=== PATIENT | female | born 1980 | race Caucasian/White ===

== ENCOUNTER 2016-05-06 16:45 | Emergency (ER) | payer OTHER ==
[~2016-05-06 16:45] MED LIST: EFFEXOR25 MG PO; GABAPENTIN600 MG PO; HYDROXYZINE HCL25 MG PO; LISINOPRIL10 MG PO; NICOTINE T21 MG/24 H TOP; NORCO1 TA1 PO
--- NOTE | 2016-05-06 18:29 | ED CLINICAL REPORT ---
Clinical Report - Physicians/Mid Levels [facility] [address] [place] [address] 05/06/2016 16:45 Patient: SINCERE BERRY Time Seen: 17:06 May 06 2016. Arrived- By private vehicle. Historian- patient. HISTORY OF PRESENT ILLNESS Chief Complaint: COUGH. This started just prior to arrival and is still present. The patient has had sputum production, a cough, difficulty breathing and chills. Additional history - No known contact with a sick individual. (Patient reports worsening of her breathing over the last 2-3 days, out of her inhaler for the last 2-3 days. No recent travel. [place] contacts at home. Denies hemoptysis.). REVIEW OF SYSTEMS No headache, vomiting, diarrhea or skin rash. All systems otherwise negative, except as recorded above. ADDITIONAL NOTES The nursing notes have been reviewed. PHYSICAL EXAM Vital Signs: 05/06/2016 16:52 BP: 137/91. HR: 86. RR: 24. O2 saturation: 97%. Temp: 98.4 F. Pain level now: 8/10. Appearance: Alert. No acute distress. ENT: Ears normal. Nose normal. Pharynx normal. Uvula midline. No trouble handling secretions. Neck: Normal inspection. No meningeal signs. CVS: Normal heart rate and rhythm. Heart sounds normal. Respiratory: Respiratory distress. Wheezing present. No retractions or decreased breath sounds. Abdomen: Soft. Back: No CVA tenderness. Skin: Skin warm. Neuro: Oriented X 3. No motor deficit. LABS, X-RAYS, AND EKG EKG: EKG time: (1740). No acute process. No acute ischemia. Normal EKG. Rate: 74. Normal P waves. Normal JESÚS. Normal QRS complex. Normal axis. Normal ST and T waves and QT. The study has been interpreted contemporaneously. The study has been independently viewed by me. The EKG appears to be a good tracing. PROGRESS AND PROCEDURES Course of Care: Patient with acute exacerbation in the ER, less likelyPE given acute wheezing, worsening of symptoms she has been out of her inhaler. No fevers. Now lungs clear after DuoNeb nebulizer treatment in the ER, albuterol. Patientgiven dexamethasone 8 mg, and refill on her prescription ,instructed to follow up with primary care provider, if fevers or cough change. 05/06/2016 18:38 BP: 138/96. HR: 85. RR: 16. O2 saturation: 95%. Lorenz-Nichols pain scale: 2/10. Patient is stable. Physical exam findings are improved. Symptoms better. Patient/family counseled. Differential Diagnosis: I considered viral bronchitis, laryngotracheobronchitis, viral pneumonia, bacterial bronchitis, bacterial pneumonia, mycoplasmal bronchitis, mycoplasmal pneumonia, bronchospasm, pulmonary embolism and adverse drug reaction as a possible cause of cough in this patient. This is a partial list of diagnoses considered. Disposition: Discharged. Condition: good. CLINICAL IMPRESSION Moderate persistent asthma with an acute exacerbation. INSTRUCTIONS Drink plenty of fluids. (hydrate plenty). Prescription Medications: Albuterol HFA oral inhaler: inhale 1 to 2 puffs every four to six hours as needed for difficulty breathing. Dispense one (1) unit. No refills. Robitussin A-C cough syrup take one (1) teaspoon orally every 8 hours as needed for cough. Dispense thirty (30) mL. No refill. Substitution is permissible. Follow-up: Follow up with your doctor Saturday. Understanding of the discharge instructions verbalized by patient. (Electronically signed by Caity Davila P.A.-C 05/06/2016 18:50)
--- NOTE | 2016-05-06 18:29 | ED NURSING NOTES ---
Clinical Report - Nurses [facility] [address] [place] [address] 05/06/2016 16:45 Patient: SINCERE BERRY TRIAGE Triage time 16:53. Chief Complaint: DIFFICULTY BREATHING and COUGH. --16:57 Gaye Hunter R.N. 16:52 05/06/16. BP: 137/91. HR: 86. RR: 24. O2 saturation: 97% on room air. Temp: 98.4 F (oral). Pain level now: 10/04. --16:57 Gaye Hunter R.N. Acuity: LEVEL 3. --16:57 Gaye Hunter R.N. Weight: 81.6 kg stated. Height/Length: 60 inches Per Patient. BMI: 35.1. --16:56 Gaye Hunter R.N. Medications Gabapentin Oral. HydrOXYzine Pamoate Oral. Tramadol HCL Oral. Venlafaxine HCl Oral. --16:54 Gaye Hunter R.N. BuPROPion HBr Oral. --16:54 Gaye Hunter R.N. Allergies No Known Drug Allergy. --16:54 Gaye Hunter R.N. History Arrived by private vehicle. Historian: patient. Accompanied by family. Primary physician ([facility]). Onset. (about 2 days ago). She has had a cough and chest pain. 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 PAST MEDICAL HX: Immunizations: up-to-date. Last normal menstrual period- Apr 16. SOCIAL HX: Heavy tobacco smoker (cigarette)- 1 pack per day. No alcohol use or drug use. NUTRITIONAL RISK ASSESSMENT: The nutritional risk assessment revealed no deficiencies. FUNCTIONAL ASSESSMENT: Functional assessment: no impairments noted. --16:57 Gaye Hunter R.N. PROBLEMS: Otitis Media. Neuropathy. Asthma. Cholelithiasis. Diabetes Mellitus. Depression. --16:55 Hunter, Gaye, R.N. ADDITIONAL SURGERIES: Adenoidectomy. Cholecystectomy. Dental Surgery. Fracture Repair. Shoulder Surgery. Tonsillectomy. --16:55 Gaye Hunter R.N. Interventions ID band on patient. To treatment room. --16:57 Gaye Hunter R.N. PHYSICAL ASSESSMENT Ambulatory to room. Patient gowned. GENERAL / NEURO / PSYCH: Alert. Oriented X 4. Appears anxious. RESPIRATORY: The patient can speak in full sentences. Nonproductive cough. CVS: Capillary refill less than 2 seconds. SKIN: Skin is warm and dry. --16:58 Gaye Hunter R.N. RESPIRATORY: Expiratory bilateral wheezes posteriorly and in the bases. --17:03 Gaye Hunter R.N. NURSING PROGRESS NOTES Head of bed elevated. Two patient identifiers checked. Call light placed in reach. Side rails up x 1. Bed placed in lowest position. Brakes of bed on. --16:58 Gaye Hunter R.N. Patient ready for evaluation- chart flagged. --16:58 Gaye Hunter R.N. ( RT at bedside giving treatments.). --17:29 Gaye Hunter R.N. 17:21 05/06/2016 Albuterol Neb TX Nebulizer 2.5 mg given. Given by the respiratory therapist. Allergies verified and confirmed 5 rights. --17:31 Laura Nielsen R.N. 17:26 05/06/2016 Duoneb (Ipratropium-Albuterol) Neb TX Nebulizer 1 unit dose given. Given by the respiratory therapist. Allergies verified and confirmed 5 rights. --17:32 Laura Nielsen R.N. EKG time: (1640). EKG was ordered, performed by a tech and shown to the ED physician. --17:42 Angela Carroll 18:03 05/06/16. BP: 129/70. HR: 84. RR: 16 (regular and unlabored). O2 saturation: 92% on room air. Lorenz-Nichols pain scale: 4/10. --18:03 Gaye Hunter R.N. 18:11 05/06/2016 Zofran ODT (Ondansetron) PO Oral Disintegrating Tablets 4 mg given. Allergies verified and confirmed 5 rights. --18:16 Gaye Hunter R.N. 18:13 05/06/2016 Dexamethasone (Dexamethasone) PO Tablets 8 mg given. Allergies verified and confirmed 5 rights. --18:17 Gaye Hunter R.N. Patient ID band checked for patient name and birthdate: patient confirmed urine collected with return of yellow-colored urine. Urine test negative. programmer operator numerical control check passed. --18:18 Gaye Hunter R.N. DISPOSITION / DISCHARGE Condition at departure: improved and stable. No learning barriers present. Discharge instructions provided and reviewed with the patient. Reviewed medication(s) side effects, precautions, dosing and course information. Prescription(s) given to the patient. Patient verbalized understanding. Written instructions provided in Algerian. The patient was discharged home and accompanied by family. She left the Emergency Department ambulatory and via private vehicle. Spouse driving. --18:39 Gaye Hunter R.N. 18:38 05/06/16. BP: 138/96. HR: 85. RR: 16. O2 saturation: 95% on room air. Lorenz-Nichols pain scale: 2/10. --18:39 Gaye Hunter R.N. Locked/Released at 05/06/2016 18:40 by Gaye Hunter R.N.
--- NOTE | 2016-05-06 18:29 | ED NURSING NOTES ---
Clinical Report - Nurses [facility] [address] [place] [address] 05/06/2016 16:45 Patient: SINCERE BERRY TRIAGE Triage time 16:53. Chief Complaint: DIFFICULTY BREATHING and COUGH. --16:57 Gaye Hunter R.N. 16:52 05/06/16. BP: 137/91. HR: 86. RR: 24. O2 saturation: 97% on room air. Temp: 98.4 F (oral). Pain level now: 10/04. --16:57 Gaye Hunter R.N. Acuity: LEVEL 3. --16:57 Gaye Hunter R.N. Weight: 81.6 kg stated. Height/Length: 60 inches Per Patient. BMI: 35.1. --16:56 Gaye Hunter R.N. Medications Gabapentin Oral. HydrOXYzine Pamoate Oral. Tramadol HCL Oral. Venlafaxine HCl Oral. --16:54 Gaye Hunter R.N. BuPROPion HBr Oral. --16:54 Gaye Hunter R.N. Allergies No Known Drug Allergy. --16:54 Gaye Hunter R.N. History Arrived by private vehicle. Historian: patient. Accompanied by family. Primary physician ([facility]). Onset. (about 2 days ago). She has had a cough and chest pain. 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 PAST MEDICAL HX: Immunizations: up-to-date. Last normal menstrual period- Apr 16. SOCIAL HX: Heavy tobacco smoker (cigarette)- 1 pack per day. No alcohol use or drug use. NUTRITIONAL RISK ASSESSMENT: The nutritional risk assessment revealed no deficiencies. FUNCTIONAL ASSESSMENT: Functional assessment: no impairments noted. --16:57 Gaye Hunter R.N. PROBLEMS: Otitis Media. Neuropathy. Asthma. Cholelithiasis. Diabetes Mellitus. Depression. --16:55 Hunter, Gaye, R.N. ADDITIONAL SURGERIES: Adenoidectomy. Cholecystectomy. Dental Surgery. Fracture Repair. Shoulder Surgery. Tonsillectomy. --16:55 Gaye Hunter R.N. Interventions ID band on patient. To treatment room. --16:57 Gaye Hunter R.N. PHYSICAL ASSESSMENT Ambulatory to room. Patient gowned. GENERAL / NEURO / PSYCH: Alert. Oriented X 4. Appears anxious. RESPIRATORY: The patient can speak in full sentences. Nonproductive cough. CVS: Capillary refill less than 2 seconds. SKIN: Skin is warm and dry. --16:58 Gaye Hunter R.N. RESPIRATORY: Expiratory bilateral wheezes posteriorly and in the bases. --17:03 Gaye Hunter R.N. NURSING PROGRESS NOTES Head of bed elevated. Two patient identifiers checked. Call light placed in reach. Side rails up x 1. Bed placed in lowest position. Brakes of bed on. --16:58 Gaye Hunter R.N. Patient ready for evaluation- chart flagged. --16:58 Gaye Hunter R.N. ( RT at bedside giving treatments.). --17:29 Gaye Hunter R.N. 17:21 05/06/2016 Albuterol Neb TX Nebulizer 2.5 mg given. Given by the respiratory therapist. Allergies verified and confirmed 5 rights. --17:31 Laura Nielsen R.N. 17:26 05/06/2016 Duoneb (Ipratropium-Albuterol) Neb TX Nebulizer 1 unit dose given. Given by the respiratory therapist. Allergies verified and confirmed 5 rights. --17:32 Laura Nielsen R.N. EKG time: (1640). EKG was ordered, performed by a tech and shown to the ED physician. --17:42 Angela Carroll 18:03 05/06/16. BP: 129/70. HR: 84. RR: 16 (regular and unlabored). O2 saturation: 92% on room air. Lorenz-Nichols pain scale: 4/10. --18:03 Gaye Hunter R.N. 18:11 05/06/2016 Zofran ODT (Ondansetron) PO Oral Disintegrating Tablets 4 mg given. Allergies verified and confirmed 5 rights. --18:16 Gaye Hunter R.N. 18:13 05/06/2016 Dexamethasone (Dexamethasone) PO Tablets 8 mg given. Allergies verified and confirmed 5 rights. --18:17 Gaye Hunter R.N. Patient ID band checked for patient name and birthdate: patient confirmed urine collected with return of yellow-colored urine. Urine test negative. lead electrical controls engineer check passed. --18:18 Gaye Hunter R.N. DISPOSITION / DISCHARGE Condition at departure: improved and stable. No learning barriers present. Discharge instructions provided and reviewed with the patient. Reviewed medication(s) side effects, precautions, dosing and course information. Prescription(s) given to the patient. Patient verbalized understanding. Written instructions provided in Canadian. The patient was discharged home and accompanied by family. She left the Emergency Department ambulatory and via private vehicle. Spouse driving. --18:39 Gaye Hunter R.N. 18:38 05/06/16. BP: 138/96. HR: 85. RR: 16. O2 saturation: 95% on room air. Lorenz-Nichols pain scale: 2/10. --18:39 Gaye Hunter R.N. Locked/Released at 05/06/2016 18:40 by Gaye Hunter R.N.
--- NOTE | 2016-05-06 18:30 | ED ORDER SUMMARY ---
..... Patient: SINCERE BERRY OrderSheet [facility] VisitID: [id number] [address] [place] [address] 35y, F Registration Date/Time: 05/06/2016 ORDER SHEET Weight: 81.6 kg (stated) Allergies: No Known Drug Allergy GENERAL ORDERS: RT Evaluation Stat (17:02 05/06/2016 RCollier R.N. per protocol) (Ack 17:03 Emma) (17:32 KWilliams R.N.) Cadastral Surveyor (Continuous) (17:10 05/06/2016 EKoroleva P.A.-C) (Ack 17:11 Emma) (18:28 RCollier R.N.) Chest 2V Urgent (17:10 05/06/2016 EKoroleva P.A.-C) (Ack 17:11 Emma) (18:28 RCollier R.N.) EKG - ER Stat (17:10 05/06/2016 EKoroleva P.A.-C) (Ack 17:11 Emma) (17:32 KWilliams R.N.) MEDICATION ORDERS: DuoNeb Neb Tx 1 unit dose (NOW) (17:10 05/06/2016 EKoroleva P.A.-C) (17:32 KWilliams R.N.) Albuterol Neb Tx 2.5 mg (NOW) (17:10 05/06/2016 EKoroleva P.A.-C) (17:31 KWilliams R.N.) Dexamethasone PO 8mg (NOW) (18:06 05/06/2016 EKoroleva P.A.-C) (Ack 18:07 RCollier R.N.) (18:17 RCollier R.N.) Zofran ODT PO 4 mg (NOW) (18:06 05/06/2016 EKoroleva P.A.-C) (Ack 18:07 RCollier R.N.) (18:16 RCollier R.N.) IV FLUIDS: ORDER SHEET NOTES: [Electronically signed by Gaye Hunter R.N. (18:40 05/06/2016)] [Electronically signed by Caity Davila P.A.-C (18:50 05/06/2016)] [Electronically locked/signed by Gaye Hunter R.N. (18:40 05/06/2016)]
--- NOTE | 2016-05-06 18:30 | ED ORDER SUMMARY ---
..... Patient: SINCERE BERRY OrderSheet [facility] VisitID: [id number] [address] [place] [address] 35y, F Registration Date/Time: 05/06/2016 ORDER SHEET Weight: 81.6 kg (stated) Allergies: No Known Drug Allergy GENERAL ORDERS: RT Evaluation Stat (17:02 05/06/2016 RCollier R.N. per protocol) (Ack 17:03 Emma) (17:32 KWilliams R.N.) Director Of Instructional Technology (Continuous) (17:10 05/06/2016 EKoroleva P.A.-C) (Ack 17:11 Emma) (18:28 RCollier R.N.) Chest 2V Urgent (17:10 05/06/2016 EKoroleva P.A.-C) (Ack 17:11 Emma) (18:28 RCollier R.N.) EKG - ER Stat (17:10 05/06/2016 EKoroleva P.A.-C) (Ack 17:11 Emma) (17:32 KWilliams R.N.) MEDICATION ORDERS: DuoNeb Neb Tx 1 unit dose (NOW) (17:10 05/06/2016 EKoroleva P.A.-C) (17:32 KWilliams R.N.) Albuterol Neb Tx 2.5 mg (NOW) (17:10 05/06/2016 EKoroleva P.A.-C) (17:31 KWilliams R.N.) Dexamethasone PO 8mg (NOW) (18:06 05/06/2016 EKoroleva P.A.-C) (Ack 18:07 RCollier R.N.) (18:17 RCollier R.N.) Zofran ODT PO 4 mg (NOW) (18:06 05/06/2016 EKoroleva P.A.-C) (Ack 18:07 RCollier R.N.) (18:16 RCollier R.N.) IV FLUIDS: ORDER SHEET NOTES: [Electronically signed by Gaye Hunter R.N. (18:40 05/06/2016)] [Electronically signed by Caity Davila P.A.-C (18:50 05/06/2016)] [Electronically locked/signed by Gaye Hunter R.N. (18:40 05/06/2016)]
--- NOTE | 2016-05-06 18:39 | DIAGNOSTIC IMAGING REPORT ---
PROCEDURE: XR CHEST 2 VIEW INDICATION: COUGH TECHNIQUE: Two views. COMPARISON: 06/20/2015 FINDINGS: The cardiomediastinal contour is stable, within normal limits. The central vasculature is not congested. The lungs are clear without focal consolidation, pleural effusion or pneumothorax. The visualized osseous structures demonstrate a chronic right shoulder separation. Partially visualized hardware in the right humerus. Surgical clips in the gallbladder fossa. IMPRESSION: 1. No evidence of acute cardiopulmonary disease. 2. Stable exam compared to prior study.
--- NOTE | 2016-05-06 18:50 | ED MAR SUMMARY ---
..... Medication Administration Record [facility] [address] [place] [address] Patient: SINCERE BERRY Visit ID: [id number] 35y, F Weight: 81.6 kg Height/Length: 60 in BMI: 35.1 ALLERGIES: No Known Drug Allergy Given 17:21 05/06/2016 Laura Nielsen R.N. Medication Administered: ALBUTEROL [NEB TX], Dose: 2.5 mg Nebulizer Neb TX. Medication Ordered: Albuterol Neb Tx 2.5 mg (NOW). Given 17:26 05/06/2016 Laura Nielsen R.N. Medication Administered: DUONEB [NEB TX] (IPRATROPIUM-ALBUTEROL), Dose: 1 unit dose Nebulizer Neb TX. Medication Ordered: DuoNeb Neb Tx 1 unit dose (NOW). Given 18:11 05/06/2016 Gaye Hunter RPresley Medication Administered: ZOFRAN ODT [PO] (ONDANSETRON), Dose: 4 mg Oral Disintegrating Tablets PO. Medication Ordered: Zofran ODT PO 4 mg (NOW). Given 18:13 05/06/2016 Gaye Hunter R.NChoco Medication Administered: DEXAMETHASONE [PO] (DEXAMETHASONE), Dose: 8 mg Tablets PO. Medication Ordered: Dexamethasone PO 8mg (NOW).
--- NOTE | 2016-05-06 18:50 | ED DISCHARGE INSTRUCTIONS ---
Patient: SINCERE BERRY General Instructions [facility] VisitID: [id number] [address] [place] [address] 35y, F Registration Date/Time: 05/06/2016 Moderate persistent asthma with an acute exacerbation. INSTRUCTIONS Drink plenty of fluids. (hydrate plenty). Prescription Medications: Albuterol HFA oral inhaler: inhale 1 to 2 puffs every four to six hours as needed for difficulty breathing. Dispense one (1) unit. No refills. Robitussin A-C cough syrup take one (1) teaspoon orally every 8 hours as needed for cough. Dispense thirty (30) mL. No refill. Substitution is permissible. Follow-up: Follow up with your doctor Saturday. Understanding of the discharge instructions verbalized by patient. ADDITIONAL INFORMATION Asthma [Adult] Asthma is a disease where the small air passages within the lung go into spasm and restrict the flow of air. Inflammation and swelling of the airways cause further restriction. During an acute asthma attack, these factors cause difficulty breathing, wheezing, cough and chest tightness. An asthma attack can be triggered by many things. Common triggers include the common cold, bronchitis, pneumonia, irritants such as smoke or pullutants in the air, emotional upset and heavy exercise. Inmany adults with asthma, allergies todust, mold, pollen and animal dander can cause an asthma attack. Skipping doses of daily asthma medicine can also bring on an asthma attack. Asthma can be controlled with proper medicines and decreased exposure to known allergens. Home Care: Take prescribed medicine exactly at the times advised. If you have a hand-held inhaler or aerosol breathing medicine, do not use it more than once every four hours, unless told to do so. (If you need this medicine more than every four hours, you may need to return to the Emergency Room.) If prescribed an antibiotic or prednisone, take all of the medicine even if you are feeling better after a few days. Do not smoke. Avoid being exposed to the smoke of others. Some persons with asthma have worsening of their symptoms when they take aspirin and non-steroidal medicines like ibuprofen (Motrin, Advil) and naproxen (Aleve, Naprosyn). Talk to your doctor if you think this may apply to you. Acetaminophen (Tylenol)should be safe to use. Follow Up with your doctor, or as advised by our staff. Always bring all of your current medicines with you for your doctor to see. If you do not already have one, talk to your doctor about developing a personalized "Asthma Action Plan." [NOTE: A pneumococcal vaccine and yearly flu shot (every fall) are recommended. Ask your doctor about this.] Get Prompt Medical Attention if any of the following occur: Increased wheezing or shortness of breath Need to use your inhalers more often than usual without relief Fever of 100.4F (38C) or higher, or as directed by your healthcare provider Coughing up lots of dark-colored or bloody sputum (mucus) Chest pain with each breath You do not start to improve within 24 hours Call 911 If Any Of The Following Occur : Trouble walking or talking because of shortness of breath If you use a peak flow meter andyou are still in the red zone (less than 50 percent) 15 minutes after using inhaler medication Lips or fingernails turning murphy or blue You have been given the following additional information: Asthma, Acute (Adult) (Electronically signed by Caity Davila P.A.-C 05/06/2016 18:50)
--- NOTE | 2016-05-06 18:50 | ED MED RECONCILIATION SUMMARY ---
Patient: SINCERE BERRY Medication Reconciliation Report [facility] VisitID: [id number] [address] [place] [address] 35y, F Registration Date/Time: 05/06/2016 Weight: 81.6 kg Height/Length: 60 in. BMI: 35.1 ALLERGIES: No Known Drug Allergy The patient's Home Medications are listed below: THE FOLLOWING MEDICATIONS NEED TO BE RECONCILED: BuPROPion HBr Oral Gabapentin Oral HydrOXYzine Pamoate Oral Tramadol HCL Oral Venlafaxine HCl Oral The source(s) of the original Home Medication information: Not obtained. The following Medications were given to the patient in the Emergency Department: Albuterol [Neb Tx] Neb TX 2.5 mg, administered: 05/06/2016 5:21:00 PM Duoneb [Neb Tx] Neb TX 1 unit dose, administered: 05/06/2016 5:26:00 PM Zofran ODT [PO] PO 4 mg, administered: 05/06/2016 6:11:00 PM Dexamethasone [PO] PO 8 mg, administered: 05/06/2016 6:13:00 PM The following Medications were prescribed to the patient: Albuterol HFA oral inhaler: inhale 1 to 2 puffs every four to six hours as needed for difficulty breathing. Dispense one (1) unit. No refills. -- Caity Davila, P.A.-C Robitussin A-C cough syrup take one (1) teaspoon orally every 8 hours as needed for cough. Dispense thirty (30) mL. No refill. Substitution is permissible. -- Caity Davila, P.A.-C
--- NOTE | 2016-05-06 18:50 | ED MED RECONCILIATION SUMMARY ---
Patient: SINCERE BERRY Medication Reconciliation Report [facility] VisitID: [id number] [address] [place] [address] 35y, F Registration Date/Time: 05/06/2016 Weight: 81.6 kg Height/Length: 60 in. BMI: 35.1 ALLERGIES: No Known Drug Allergy The patient's Home Medications are listed below: THE FOLLOWING MEDICATIONS NEED TO BE RECONCILED: BuPROPion HBr Oral Gabapentin Oral HydrOXYzine Pamoate Oral Tramadol HCL Oral Venlafaxine HCl Oral The source(s) of the original Home Medication information: Not obtained. The following Medications were given to the patient in the Emergency Department: Albuterol [Neb Tx] Neb TX 2.5 mg, administered: 05/06/2016 5:21:00 PM Duoneb [Neb Tx] Neb TX 1 unit dose, administered: 05/06/2016 5:26:00 PM Zofran ODT [PO] PO 4 mg, administered: 05/06/2016 6:11:00 PM Dexamethasone [PO] PO 8 mg, administered: 05/06/2016 6:13:00 PM The following Medications were prescribed to the patient: Albuterol HFA oral inhaler: inhale 1 to 2 puffs every four to six hours as needed for difficulty breathing. Dispense one (1) unit. No refills. -- Caity Davila, P.A.-C Robitussin A-C cough syrup take one (1) teaspoon orally every 8 hours as needed for cough. Dispense thirty (30) mL. No refill. Substitution is permissible. -- Caity Davila, P.A.-C
--- NOTE | 2016-05-06 18:50 | ED MAR SUMMARY ---
..... Medication Administration Record [address] [place] [address] Patient: SINCERE BERRY Visit ID: [id number] 35y, F Weight: 81.6 kg Height/Length: 60 in BMI: 35.1 ALLERGIES: No Known Drug Allergy Given 17:21 05/06/2016 Laura Nielsen R.N. Medication Administered: ALBUTEROL [NEB TX], Dose: 2.5 mg Nebulizer Neb TX. Medication Ordered: Albuterol Neb Tx 2.5 mg (NOW). Given 17:26 05/06/2016 Laura Nielsen R.N. Medication Administered: DUONEB [NEB TX] (IPRATROPIUM-ALBUTEROL), Dose: 1 unit dose Nebulizer Neb TX. Medication Ordered: DuoNeb Neb Tx 1 unit dose (NOW). Given 18:11 05/06/2016 Gaye Hunter RPresley Medication Administered: ZOFRAN ODT [PO] (ONDANSETRON), Dose: 4 mg Oral Disintegrating Tablets PO. Medication Ordered: Zofran ODT PO 4 mg (NOW). Given 18:13 05/06/2016 Gaye Hunter R.NChoco Medication Administered: DEXAMETHASONE [PO] (DEXAMETHASONE), Dose: 8 mg Tablets PO. Medication Ordered: Dexamethasone PO 8mg (NOW).
== END 2016-05-06 18:37 | disposition home or self-care (01) ==
LOC: ED SRH 16:45
DX: J45.41 Moderate persistent asthma with (acute) exacerbation (principal)

== ENCOUNTER 2016-06-24 15:20 | Emergency (ER) | payer OTHER ==
--- NOTE | 2016-06-24 16:44 | ED ORDER SUMMARY ---
..... Patient: SINCERE BERRY OrderSheet [facility] VisitID: [id number] [address] [place] [address] 35y, F Registration Date/Time: 06/24/2016 ORDER SHEET Weight: 81.6 kg (stated) Allergies: No Known Drug Allergy GENERAL ORDERS: MEDICATION ORDERS: Amoxicillin PO 500 mg (NOW) (16:43 06/24/2016 Nickie ROMO) (Ack 16:48 MWinterer R.N.) (16:52 MWinterer R.N.) IV FLUIDS: ORDER SHEET NOTES: [Electronically signed by Luz Borja R.N. (17:12 06/24/2016)] [Electronically signed by Catrachita Durán MD (21:41 06/24/2016)] [Electronically locked/signed by Luz Borja R.N. (17:12 06/24/2016)]
--- NOTE | 2016-06-24 16:44 | ED NURSING NOTES ---
Clinical Report - Nurses [facility] [place] [address] 06/24/2016 15:20 Patient: SINCERE BERRY TRIAGE Acuity: LEVEL 4. Chief Complaint: LEFT EAR PAIN. Alert. No acute distress. SEPSIS SCREEN: Sepsis Screen. Negative (no infection suspected/documented). --15:46 Luz Borja R.N. 15:42 06/24/16. BP: 155/92. HR: 79. RR: 12. O2 saturation: 100% on room air. Temp: 97.9 F (oral). Pain level now: 12/04. --15:46 Luz Borja R.N. Weight: 81.6 kg stated. Height/Length: 60 inches Per Patient. BMI: 35.1. --15:44 Luz Borja R.N. Medications BuPROPion HBr Oral. Gabapentin Oral. HydrOXYzine Pamoate Oral. Tramadol HCL Oral. Venlafaxine HCl Oral. --15:43 Luz Borja R.N. Allergies No Known Drug Allergy. --15:43 Luz Borja R.N. History Arrived by private vehicle. Historian: patient. Accompanied by brother. Primary physician ([facility]). Onset. (4 days ago). 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 PAST MEDICAL HX: Immunizations: up-to-date. SOCIAL HX: Current every day light tobacco smoker (cigarette)- less than 1/2 a pack per day. No alcohol use or drug use. FALL RISK ASSESSMENT: Fall risk assessment completed. No fall risk identified. NUTRITIONAL RISK ASSESSMENT: The nutritional risk assessment revealed no deficiencies. FUNCTIONAL ASSESSMENT: Functional assessment: no impairments noted. LEARNING NEEDS ASSESSMENT: The learning needs assessment revealed no barriers. SKIN INTEGRITY ASSESSMENT: Skin integrity risk assessment completed. No skin integrity risk identified. --15:46 Luz Borja R.N. PROBLEMS: Upper Extremity Pain. Otitis Media. Vomiting. Neuropathy. URI. Asthma. UTI - Urinary Tract Infection. Cholelithiasis. Abdominal Pain. Substance Abuse. Diabetes Mellitus. Immunizations. LNMP - Last Normal Menstrual Period. . Depression. --15:44 Luz Borja R.N. The following entry was modified by Catrachita Durán MD, 16:10 Reason - duplicate <<STRICKEN ENTRY-- Gallstone(s). --16:29 Catrachita Durán MD --END STRIKE>>. ADDITIONAL SURGERIES: Adenoidectomy. Cholecystectomy. Dental Surgery. Fracture Repair. Shoulder Surgery. Tonsillectomy. --15:44 Luz Borja R.N. Assessment GENERAL / NEURO / PSYCH: Alert. Oriented X 4. Appears in no acute distress. Patient appears calm and cooperative. RESPIRATORY: Respirations not labored. CVS: Capillary refill less than 2 seconds. GI / : Abdomen soft and nontender. SKIN: Mucous membranes are pink. Skin is warm and dry. --15:46 Luz Borja R.N. Interventions ID band on patient. To treatment room. --15:46 Luz Borja R.N. PHYSICAL ASSESSMENT 15:46 06/24/16. Ambulatory to room. GENERAL / NEURO / PSYCH: Alert. Appears in no acute distress. HEENT: No facial asymmetry noted. Pupils equal, round and reactive to light. Pharynx within normal limits. RESPIRATORY: Respirations not labored. SKIN: Skin is warm and dry. --15:46 Luz Borja R.N. NURSING PROGRESS NOTES 15:46 06/24/16. Two patient identifiers checked. Call light placed in reach. Bed placed in lowest position. Brakes of bed on. Patient ready for evaluation- ED physician and POSTER notified. --15:46 Luz Borja R.N. 16:42 06/24/2016 Amoxicillin PO 500 mg given. Allergies verified and confirmed 5 rights. --16:52 Luz Borja R.N. DISPOSITION / DISCHARGE Departure time: 16:50 Jun 24 2017. Condition at departure: unchanged and stable. No learning barriers present. Discharge instructions provided and reviewed with the patient. Reviewed medication(s) side effects, precautions and dosing information. Prescription(s) given to the patient. Patient verbalized understanding. Written instructions provided in Turkmen. The patient was discharged by the physician. She was discharged home and accompanied by loading unit tool setter. She left the Emergency Department ambulatory and via private vehicle. --17:12 Luz Borja R.N. Locked/Released at 06/24/2016 17:12 by Luz Borja R.N.
--- NOTE | 2016-06-24 16:44 | ED ORDER SUMMARY ---
..... Patient: SINCERE BERRY OrderSheet [facility] VisitID: [id number] [address] [place] [address] 35y, F Registration Date/Time: 06/24/2016 ORDER SHEET Weight: 81.6 kg (stated) Allergies: No Known Drug Allergy GENERAL ORDERS: MEDICATION ORDERS: Amoxicillin PO 500 mg (NOW) (16:43 06/24/2016 Nickie ROMO) (Ack 16:48 MWinterer R.N.) (16:52 MWinterer R.N.) IV FLUIDS: ORDER SHEET NOTES: [Electronically signed by Luz Borja R.N. (17:12 06/24/2016)] [Electronically signed by Catrachita Durán MD (21:41 06/24/2016)] [Electronically locked/signed by Luz Borja R.N. (17:12 06/24/2016)]
--- NOTE | 2016-06-24 16:44 | ED NURSING NOTES ---
Clinical Report - Nurses [facility] [place] [address] 06/24/2016 15:20 Patient: SINCERE BERRY TRIAGE Acuity: LEVEL 4. Chief Complaint: LEFT EAR PAIN. Alert. No acute distress. SEPSIS SCREEN: Sepsis Screen. Negative (no infection suspected/documented). --15:46 Luz Borja R.N. 15:42 06/24/16. BP: 155/92. HR: 79. RR: 12. O2 saturation: 100% on room air. Temp: 97.9 F (oral). Pain level now: 12/04. --15:46 Luz Borja R.N. Weight: 81.6 kg stated. Height/Length: 60 inches Per Patient. BMI: 35.1. --15:44 Luz Borja R.N. Medications BuPROPion HBr Oral. Gabapentin Oral. HydrOXYzine Pamoate Oral. Tramadol HCL Oral. Venlafaxine HCl Oral. --15:43 Luz Borja R.N. Allergies No Known Drug Allergy. --15:43 Luz Borja R.N. History Arrived by private vehicle. Historian: patient. Accompanied by brother. Primary physician ([facility]). Onset. (4 days ago). 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 PAST MEDICAL HX: Immunizations: up-to-date. SOCIAL HX: Current every day light tobacco smoker (cigarette)- less than 1/2 a pack per day. No alcohol use or drug use. FALL RISK ASSESSMENT: Fall risk assessment completed. No fall risk identified. NUTRITIONAL RISK ASSESSMENT: The nutritional risk assessment revealed no deficiencies. FUNCTIONAL ASSESSMENT: Functional assessment: no impairments noted. LEARNING NEEDS ASSESSMENT: The learning needs assessment revealed no barriers. SKIN INTEGRITY ASSESSMENT: Skin integrity risk assessment completed. No skin integrity risk identified. --15:46 Luz Borja R.N. PROBLEMS: Upper Extremity Pain. Otitis Media. Vomiting. Neuropathy. URI. Asthma. UTI - Urinary Tract Infection. Cholelithiasis. Abdominal Pain. Substance Abuse. Diabetes Mellitus. Immunizations. LNMP - Last Normal Menstrual Period. . Depression. --15:44 Luz Borja R.N. The following entry was modified by Catrachita Durán MD, 16:10 Reason - duplicate <<STRICKEN ENTRY-- Gallstone(s). --16:29 Catrachita Durán MD --END STRIKE>>. ADDITIONAL SURGERIES: Adenoidectomy. Cholecystectomy. Dental Surgery. Fracture Repair. Shoulder Surgery. Tonsillectomy. --15:44 Luz Borja R.N. Assessment GENERAL / NEURO / PSYCH: Alert. Oriented X 4. Appears in no acute distress. Patient appears calm and cooperative. RESPIRATORY: Respirations not labored. CVS: Capillary refill less than 2 seconds. GI / : Abdomen soft and nontender. SKIN: Mucous membranes are pink. Skin is warm and dry. --15:46 Luz Borja R.N. Interventions ID band on patient. To treatment room. --15:46 Luz Borja R.N. PHYSICAL ASSESSMENT 15:46 06/24/16. Ambulatory to room. GENERAL / NEURO / PSYCH: Alert. Appears in no acute distress. HEENT: No facial asymmetry noted. Pupils equal, round and reactive to light. Pharynx within normal limits. RESPIRATORY: Respirations not labored. SKIN: Skin is warm and dry. --15:46 Luz Borja R.N. NURSING PROGRESS NOTES 15:46 06/24/16. Two patient identifiers checked. Call light placed in reach. Bed placed in lowest position. Brakes of bed on. Patient ready for evaluation- ED physician and DINING CAR SERVER notified. --15:46 Luz Borja R.N. 16:42 06/24/2016 Amoxicillin PO 500 mg given. Allergies verified and confirmed 5 rights. --16:52 Luz Borja R.N. DISPOSITION / DISCHARGE Departure time: 16:50 Jun 24 2017. Condition at departure: unchanged and stable. No learning barriers present. Discharge instructions provided and reviewed with the patient. Reviewed medication(s) side effects, precautions and dosing information. Prescription(s) given to the patient. Patient verbalized understanding. Written instructions provided in Bulgarian. The patient was discharged by the physician. She was discharged home and accompanied by pain management physician. She left the Emergency Department ambulatory and via private vehicle. --17:12 Luz Borja R.N. Locked/Released at 06/24/2016 17:12 by Luz Borja R.N.
--- NOTE | 2016-06-24 16:44 | ED CLINICAL REPORT ---
Clinical Report - Physicians/Mid Levels [facility] [address] [place] [address] 06/24/2016 15:20 Patient: SINCERE BERRY Time Seen: 15:50. Arrived- By private vehicle. Historian- patient. HISTORY OF PRESENT ILLNESS Chief Complaint: EARACHE. Modifying factors- worsened by cough and swallowing. Not relieved by anything. This started several days ago and is still present. The patient cannot recall the circumstances at the onset. Location- left ear. The pain is described as moderate. The patient has had ear pain. No ear drainage, hearing loss, nasal discharge or congestion or sinus pressure. No complaint of foreign body in the ear, ear trauma, recent barotrauma, tinnitus or sore throat. No toothache, jaw pain or facial pain. Similar symptoms previously: Recent medical care: Not recently seen/assessed. REVIEW OF SYSTEMS No fever, chills, cough, difficulty breathing or chest pain. No headache, eye discomfort, nausea, vomiting or diarrhea. No abdominal pain, difficulty with urination, skin rash, enlarged lymph nodes or joint pain. Has not had decreased oral intake. All systems otherwise negative, except as recorded above. PAST HISTORY Problems: Neuropathy. Asthma. Cholelithiasis. Substance Abuse. Diabetes Mellitus. Immunizations. LNMP - Last Normal Menstrual Period. Depression. Additional Surgeries: Adenoidectomy. Cholecystectomy. Dental Surgery. Fracture Repair. Shoulder Surgery. Tonsillectomy. Medications: BuPROPion HBr Oral. Gabapentin Oral. HydrOXYzine Pamoate Oral. Tramadol HCL Oral. Venlafaxine HCl Oral. Allergies: No Known Drug Allergy. SOCIAL HISTORY Smoker- current status unknown. No alcohol use or drug use. ADDITIONAL NOTES The nursing notes have been reviewed. PHYSICAL EXAM Vital Signs: 06/24/2016 15:42 BP: 155/92. HR: 79. RR: 12. O2 saturation: 100%. Temp: 97.9 F. Pain level now: 10/10. Have been reviewed. Appearance: Alert. No acute distress. Eyes: Eyes normal inspection. Ear (right): Right ear normal. Right tympanic membrane normal. Ear (left): There is erythema, dullness and bulging of the tympanic membrane and an abnormal light reflex. Nose: Nose normal. CVS: Normal heart rate and rhythm. Heart sounds normal. Respiratory: No respiratory distress. Breath sounds normal. Abdomen: Soft and nontender. Back: Normal inspection. Skin: Skin warm and dry. Normal skin color. No rash. Normal skin turgor. Extremities: Extremities exhibit normal ROM. No lower extremity edema. Neuro: Oriented X 3. No motor deficit. No sensory deficit. LABS, X-RAYS, AND EKG Pulse Oximetry: 06/24/2016 15:42 O2 saturation: 100%. (FIO2 - room air). Interpretation: normal. PROGRESS AND PROCEDURES Course of Care: Patient was treated with amoxicillin for her otitis media. Patient counseled in person regarding the patient's stable condition and diagnosis. Concerns were addressed. Old medical records reviewed. Disposition: Discharged. Condition: stable. CLINICAL IMPRESSION Acute suppurative left otitis media. INSTRUCTIONS Drink plenty of fluids. Warnings: GENERAL WARNINGS: Return or contact your physician immediately if your condition worsens or changes unexpectedly, if not improving as expected, or if other problems arise. Your Current Medications: CONTINUE TAKING THE FOLLOWING MEDICATIONS: BuPROPion HBr Oral. Gabapentin Oral. HydrOXYzine Pamoate Oral. Tramadol HCL Oral. Venlafaxine HCl Oral. Prescription Medications: Amoxicillin 500 mg tablets: take 1 orally every 8 hours for 7 days. No refills. Hydrocodone/APAP 5mg / 325mg: take 1 orally every 6 hours as needed for pain. Dispense five (5). No refill. Follow-up: Follow up with your doctor in seven days if not better. Understanding of the discharge instructions verbalized by patient. (Electronically signed by Catrachita Durán MD 06/24/2016 21:41)
--- NOTE | 2016-06-24 21:42 | ED MED RECONCILIATION SUMMARY ---
Patient: SINCERE BERRY Medication Reconciliation Report [facility] VisitID: [id number] [place] [address] 35y, F Registration Date/Time: 06/24/2016 Weight: 81.6 kg Height/Length: 60 in. BMI: 35.1 ALLERGIES: No Known Drug Allergy The patient's Home Medications are listed below: CONTINUE TAKING THE FOLLOWING MEDICATIONS: BuPROPion HBr Oral Gabapentin Oral HydrOXYzine Pamoate Oral Tramadol HCL Oral Venlafaxine HCl Oral The source(s) of the original Home Medication information: Not obtained. The following Medications were given to the patient in the Emergency Department: Amoxicillin [PO] PO 500 mg, administered: 06/24/2016 4:42:00 PM The following Medications were prescribed to the patient: Amoxicillin 500 mg tablets: take 1 orally every 8 hours for 7 days. No refills. -- Catrachita Durán MD Hydrocodone/APAP 5mg / 325mg: take 1 orally every 6 hours as needed for pain. Dispense five (5). No refill. -- Catrachita Durán MD
--- NOTE | 2016-06-24 21:42 | ED MAR SUMMARY ---
..... Medication Administration Record [facility] [address] [place] [address] Patient: SINCERE BERRY Visit ID: [id number] 35y, F Weight: 81.6 kg Height/Length: 60 in BMI: 35.1 ALLERGIES: No Known Drug Allergy Given 16:42 06/24/2016 Luz Borja R.N. Medication Administered: AMOXICILLIN [PO], Dose: 500 mg PO. Medication Ordered: Amoxicillin PO 500 mg (NOW).
--- NOTE | 2016-06-24 21:42 | ED MED RECONCILIATION SUMMARY ---
Patient: SINCERE BERRY Medication Reconciliation Report [facility] VisitID: [id number] [place] [address] 35y, F Registration Date/Time: 06/24/2016 Weight: 81.6 kg Height/Length: 60 in. BMI: 35.1 ALLERGIES: No Known Drug Allergy The patient's Home Medications are listed below: CONTINUE TAKING THE FOLLOWING MEDICATIONS: BuPROPion HBr Oral Gabapentin Oral HydrOXYzine Pamoate Oral Tramadol HCL Oral Venlafaxine HCl Oral The source(s) of the original Home Medication information: Not obtained. The following Medications were given to the patient in the Emergency Department: Amoxicillin [PO] PO 500 mg, administered: 06/24/2016 4:42:00 PM The following Medications were prescribed to the patient: Amoxicillin 500 mg tablets: take 1 orally every 8 hours for 7 days. No refills. -- Catrachita Durán MD Hydrocodone/APAP 5mg / 325mg: take 1 orally every 6 hours as needed for pain. Dispense five (5). No refill. -- Catrachita Durán MD
--- NOTE | 2016-06-24 21:42 | ED MAR SUMMARY ---
..... Medication Administration Record [facility] [address] [place] [address] Patient: SINCERE BERRY Visit ID: [id number] 35y, F Weight: 81.6 kg Height/Length: 60 in BMI: 35.1 ALLERGIES: No Known Drug Allergy Given 16:42 06/24/2016 Luz Borja R.N. Medication Administered: AMOXICILLIN [PO], Dose: 500 mg PO. Medication Ordered: Amoxicillin PO 500 mg (NOW).
--- NOTE | 2016-06-24 21:42 | ED DISCHARGE INSTRUCTIONS ---
Patient: SINCERE BERRY General Instructions [facility] VisitID: [id number] [place] [address] 35y, F Registration Date/Time: 06/24/2016 Acute suppurative left otitis media. INSTRUCTIONS Drink plenty of fluids. Warnings: GENERAL WARNINGS: Return or contact your physician immediately if your condition worsens or changes unexpectedly, if not improving as expected, or if other problems arise. Your Current Medications: CONTINUE TAKING THE FOLLOWING MEDICATIONS: BuPROPion HBr Oral. Gabapentin Oral. HydrOXYzine Pamoate Oral. Tramadol HCL Oral. Venlafaxine HCl Oral. Prescription Medications: Amoxicillin 500 mg tablets: take 1 orally every 8 hours for 7 days. No refills. Hydrocodone/APAP 5mg / 325mg: take 1 orally every 6 hours as needed for pain. Dispense five (5). No refill. Follow-up: Follow up with your doctor in seven days if not better. Understanding of the discharge instructions verbalized by patient. ADDITIONAL INFORMATION Middle Ear Infection (Adult) You have an infection of the middle ear (the space behind the eardrum). It can occur as a result of the common cold. This is because congestion can block the internal passage (eustachian tube) that drains fluid from the middle ear. When the middle ear fills with fluid, bacteria can grow there and cause an infection. Oral antibiotics are used to treat this illness, not ear drops. Symptoms usually start to improve within 1-2 days of treatment. Home Care: Finish all of the antibiotic medicine prescribed, even though you may feel better after the first few days. You may use acetaminophen (Tylenol) or ibuprofen (Motrin, Advil) to control pain, unless something else was prescribed. [NOTE: If you have chronic liver or kidney disease or have ever had a stomach ulcer or GI bleeding, talk with your doctor before using these medicines.] (Do not give aspirin to anyone under 18 years of age who is ill with a fever. It may cause severe liver damage.) Follow Up with your doctor or this facility in two weeks if all symptoms have not cleared, or if hearing does not return to normal within one month. Get Prompt Medical Attention if any of the following occur: Ear pain gets worse or does not improve after three days of treatment Unusual drowsiness or confusion Neck pain, stiff neck or headache Fluid or blood draining from the ear canal Fever of 100.4F (38C) or higher after 3 days of antibiotics, or as directed by your healthcare provider Convulsion (seizure) You have been given the following additional information: Otitis Media, Abx Tx (Adult) (Electronically signed by Catrachita Durán MD 06/24/2016 21:41)
== END 2016-06-24 16:50 | disposition home or self-care (01) ==
LOC: ED SRH 15:20
DX: H66.002 Acute suppurative otitis media without spontaneous rupture of ear drum, left ear (principal); E11.9 Type 2 diabetes mellitus without complications; J45.909 Unspecified asthma, uncomplicated; Z79.899 Other long term (current) drug therapy

== ENCOUNTER 2016-07-11 15:17 | Outpatient (CLI) | payer OTHER ==
--- NOTE | 2016-07-11 15:48 | DIAGNOSTIC IMAGING REPORT ---
PROCEDURE: XR LUMBAR SPINE 2 OR 3 VIEWS INDICATION: LUMBAGO WITH SCIATICA RIGHT SIDE TECHNIQUE: Three views. COMPARISON: None. FINDINGS: Osseous structures and disc spaces are normal. No evidence of an acute process or fracture. IMPRESSION: 1. Negative lumbar spine.
== END 2016-07-11 23:00 ==
LOC: XR SRH 15:17
DX: M54.41 Lumbago with sciatica, right side (principal)